=== PATIENT | female | born 1955 | race Caucasian/White ===

== ENCOUNTER → 2018-04-22 | Outpatient (CLI) | payer SELFPAY | END | disposition home or self-care (01) | LOC: CT 13:34 | PROVIDERS: ATTEND Orthopaedic Surgery | DX: M17.11 Unilateral primary osteoarthritis, right knee (principal) | CPT/HCPCS: 73700 ==

== ENCOUNTER 2018-06-03 00:10 | Inpatient (IN) | payer SELFPAY ==
[2018-05-29 10:44] VITALS: BP 141/90
--- NOTE | 2018-05-29 11:05 | PCM.EKG ---
[facility] Test Date: 2018-05-29 Test Time: 11:02:05 Pat Name: REGLA HOLDEN Department: Patient ID: [facility]-[id number] Room: Gender: F Fence Erector: : 1955 Requested By: CLIFFORD CORNEJO Order Number: [id number] Reading MD: Alexis Mcgee Measurements Intervals [place] Rate: 75 P: 68 UT: 138 QRS: 34 QRSD: 92 T: 44 QT: 410 QTc: 457 Interpretive Statements Normal sinus rhythm with sinus arrhythmia Septal infarct, age undetermined T wave abnormality, consider anterior ischemia Abnormal ECG No previous ECG available for comparison Electronically Signed On 05-29-2018 14:25:10 FIELD AUTO APPRAISER by Alexis Mcgee Please click the below link to view image of tracing.
[2018-05-29 11:30] LABS: MEAN CELL HGB 29.8 pg (26-34); MEAN CELL HGB CONCENTRATION 31.9 g/dL (33-37); MEAN CORP VOLUME 93.6 fL (78-100); MEAN PLATELET VOLUME 11.2 fL (7.8-11.0); RED CELL DISTRIBUTION WIDTH 13.6 % (11.5-14.5); WHITE BLOOD CELL 5.1 10^3/uL (4.5-11.0)
[2018-05-29 11:43] LABS: BILIRUBIN,URINE NEGATIVE (NEGATIVE); UROBILINOGEN,URINE NORMAL (NEGATIVE)
[2018-05-29 11:56] LABS: APPEARANCE,URINE CLEAR (CLEAR); UA COLOR YELLOW (YELLOW)
[2018-05-29 12:01] LABS: CALCIUM 9.5 mg/dL (8.4-10.5); CARBON DIOXIDE 27.2 mmol/L (20.0-32)
[~2018-06-03] VITALS: Ht 163.8 cm; Wt 88.0 kg
[2018-06-03] VITALS (8 sets, daily range): BP systolic 94–175; BP diastolic 53–87
[~2018-06-03 00:10] MED LIST: ASCO10002 PO; CALC-76 PO; CARV3.12 PO; CHOL500016 PO; CYCL10TA2 PO; FEXO180T72 PO; HYDR25TA PO; IBUP200C8 PO; LACT1CAP PO; LEVO150T6 PO; MAGN400C PO; MONT10TA6 PO; OMEG1CAP2 PO; OMEP20TA62 PO; SUMA50TA3 PO; TOPI25TA8 PO; VITA200T4 PO; [UNRECOGNIZED DRUG - OTHER] PO
[2018-06-03] MEDS ORDERED: NS 250ML 250 ML IV ONE ×2 (05:32→12:26)
[2018-06-03] MEDS ORDERED: LACTATED RINGERS 1,000 ML ONE (05:33)
[2018-06-03] MEDS ORDERED: VANCOMYCIN HCL 2 GM ONE (05:33)
[2018-06-03] MEDS ORDERED: BACTROBAN OINTMENT TP ONE ×2 (05:33→09:00)
[2018-06-03] MEDS: TYLENOL PO SCH ×3 (06:30→19:50)
[2018-06-03] MEDS ORDERED: SUBLIMAZE IV PRN (06:30)
[2018-06-03] MEDS ORDERED: ZOFRAN IV PRN (06:30)
[2018-06-03] MEDS ORDERED: DILAUDID IV PRN (06:30)
[2018-06-03] MEDS ORDERED: TYLENOL PO SCH (06:30)
[2018-06-03] MEDS ORDERED: NEURONTIN PO SCH (06:30)
[2018-06-03] MEDS ORDERED: DECADRON ONE (06:41)
[2018-06-03] MEDS ORDERED: NEOSTIGMINE ONE (06:41)
[2018-06-03] MEDS ORDERED: TORADOL ONE (06:41)
[2018-06-03] MEDS ORDERED: ZEMURON IV ONE (06:42)
[2018-06-03] MEDS ORDERED: VERSED ONE (06:42)
[2018-06-03] MEDS ORDERED: DIPRIVAN IV ONE (06:42)
[2018-06-03] MEDS ORDERED: NAROPIN 0.2% 40 MG/20 ML VIAL ONE (06:43)
[2018-06-03] MEDS ORDERED: SENSORCAINE-MPF 0.5% VIAL ONE (06:43)
[2018-06-03] MEDS ORDERED: LACTATED RINGERS 2,000 ML ONE (06:43)
[2018-06-03] MEDS ORDERED: PRECEDEX IV ONE (06:43)
[2018-06-03] MEDS ORDERED: VANCOMYCIN 1,500 MG in NS 250ML 300 ML IV ONE (09:00)
[2018-06-03] MEDS ORDERED: CELEBREX PO SCH (09:00)
[2018-06-03] MEDS ORDERED: EXPAREL 266 MG/20 ML VIAL IJ ONE (09:41)
[2018-06-03] MEDS ORDERED: TYLENOL PO ONE (11:27)
[2018-06-03] MEDS ORDERED: NEURONTIN ONE (11:28)
[2018-06-03] MEDS: LACTATED RINGERS 1,000 ML IV SCH (11:50)
[2018-06-03] MEDS ORDERED: TRANEXAMIC ACID IV ONE ×2 (12:21→15:08)
[2018-06-03] MEDS ORDERED: SODIUM CHLORIDE IR ONE (12:26)
[2018-06-03] MEDS ORDERED: NS 3000ML IRR IR ONE (12:26)
[2018-06-03] MEDS ORDERED: NS 100ML 200 ML IV ONE (12:26)
[2018-06-03] MEDS ORDERED: DUONEB 0.5 MG-3 MG/3 ML SOLN IH PRN ×2 (15:30)
[2018-06-03] MEDS ORDERED: EPHEDRINE SULFATE ONE (17:43)
[2018-06-03] MEDS ORDERED: DEMEROL IV PRN (18:00)
[2018-06-03] MEDS ORDERED: NS IV SCH (18:00)
[2018-06-03] MEDS ORDERED: LOVAZA PO SCH (18:00)
[2018-06-03] MEDS ORDERED: VALIUM PO PRN (18:00)
[2018-06-03] MEDS ORDERED: CEPACOL SORE THROAT LOZENGE MM PRN (18:00)
[2018-06-03] MEDS ORDERED: VANCOMYCIN HCL IV SCH (18:00)
[2018-06-03] MEDS ORDERED: LACTATED RINGERS 1,000 ML IV SCH (18:00)
[2018-06-03] MEDS ORDERED: IMITREX PO PRN (18:00)
[2018-06-03] MEDS ORDERED: ATARAX PO PRN (18:00)
--- NOTE | 2018-06-03 18:08 | OPH ---
DATE OF SURGERY: 06/03/2018 PREOPERATIVE DIAGNOSIS: Osteoarthritis of the right knee. POSTOPERATIVE DIAGNOSIS: Osteoarthritis of the right knee. OPERATIVE PROCEDURE: Right total knee arthroplasty using Medacta Sphere knee, size 3+ femur, size 3 tibia, 10 mm insert. All components were cemented. SURGEON: Umang Chirinos MD ANESTHESIA: General endotracheal. BLOOD LOSS: 300. TOURNIQUET TIME: 60 minutes at 300 mmHg. DRAINS: None. BLOOD LOSS: 300 mL. DESCRIPTION OF INDICATIONS: The patient is a 62-year-old female with severe pain about the right knee for 1 year. She has severe limping as well as night pain and household ambulation. She has failed conservative treatment and is limited on her amount of anti-inflammatories that she can to take because of GERD. X-rays show severe medial compartment narrowing with patellofemoral narrowing. The patient was taken to the operating room for right total knee replacement for pain relief. DESCRIPTION OF PROCEDURE: The patient was placed on the operating table in the supine position. A general endotracheal anesthetic was induced without difficulty. Right thigh was padded and a tourniquet was applied. The right lower extremity was sterilely prepped and draped. The leg was exsanguinated with an Esmarch and tourniquet was inflated to 300 mmHg. The knee was flexed to 90 degrees. An anterior incision was made. The incision was taken through the skin and the subcutaneous tissues. A medial parapatellar arthrotomy was performed. The patella was deviated laterally. Medial and lateral meniscectomies were performed. The anterior and posterior cruciate ligaments were released. The capsule and the MCL were released around the posterior medial corner of the tibia. The patient then had the ZipmarkKnee femoral cutting guide placed about the distal femur and held into position with multiple pins. Distal femoral cut was then made with the power saw. The #2 size 3+ femoral cutting block was placed about the distal femur and held into position with multiple screws and pins. The anterior and posterior femoral cuts as well as the chamfer cuts were made. The tibia was subluxed anteriorly. The ZipmarkKnee tibial cutting guide was placed about the proximal tibia and held into position with multiple pins. Tibial cut was then made with the saw. The tibia measured a size 3. The size 3 tibial trial was held into position with multiple pins. The central drill hole was made and the cruciate punch was used to stabilize the tibial component. Trial reduction was done with a 3 tibia, 3+ femur, 10 mm insert. The knee went out into full extension. She had 120 degrees of flexion, excellent medial and lateral stability, excellent tracking of the patella. The patella was everted. The peripheral osteophytes were trimmed. The peripheral edges were cauterized. The final medial and lateral femoral drill holes were made. The femoral sulcus cut was made. The patient then had the trial components and the bone ends were copiously irrigated. The bone ends were then dried and a size 3 tibial component was cemented into position. The polyethylene component was impacted into position and secured with an anterior screw. The size 3+ femur was likewise cemented. Once all the excess cement was removed and the cement had hardened, tourniquet was released. The bleeding was controlled with the Aquamantys device. The Exparel was injected. The capsule was closed with a #2 PDS in interrupted [id number] manner. The subcutaneous was closed with 2-0 Monocryl barbed in a running manner and the skin was closed with kim. A Prevena type suction dressing was applied, reinforced with 4 x 4's, cast padding and Germain wrap. The patient was extubated in the operating room, sent to recovery in stable condition. Umang Chirinos MD DR: CARI/timothy JOB# [id number]
--- NOTE | 2018-06-03 18:27 | DIREP ---
PROCEDURE:XRAY KNEE 2 VWS-RT COMPARISON:None. INDICATIONS:POST TOTAL RIGHT KNEE FINDINGS: Postoperative changes of right total knee prosthesis. Expected postoperative changes of soft tissue gas, swelling and midline surgical kim noted. No evidence of hardware complication/fracture. CONCLUSION:Postoperative changes of right total knee prosthesis. Dictated by: Shukri Grimes M.D. on 06/03/2018 at 06:26 PM
--- NOTE | 2018-06-03 18:57 | PRM.PN ---
Subjective Subjective Date: Jun 03, 2018 Time: 18:56 Subjective Awake and alert VSS NVM+ Stable No pain Patient History: Autoimmune disorder V19 CHILD Chronic obstructive pulmonary disease 32 MOTHER, , Age:79 33 FATHER, , Age:76 G8 SISTER G8 SISTER Diabetes mellitus V19 CHILD FH: Crohn's disease G8 SISTER No known health problems G8 SISTER G8 SISTER G8 SISTER V19 CHILD V19 CHILD No Family History of: Alzheimer's disease Asthma Cerebrovascular disorder Congestive heart failure Diabetes insipidus Hypertension Parkinson's disease VTE VTE Risk Total Score: 4 VTE Risk Score VTE Risk: Score 0-1 = Low Risk (Aggressive mobilization; early ambulation; no VTE prophylaxis required) Score 2: Moderate Risk (Intermittent/Pneumatic Compression Device OR Lovenox/Heparin/Coumadin) Score 3-4: High Risk (Intermittent/Pneumatic Compression Device AND Lovenox/Heparin/Coumadin) Score > or =5: Highest Risk (Intermittent/Pneumatic Compression Device AND Lovenox/Heparin/Coumadin) Review of Systems Allergies: Coded Allergies: adhesive (Verified Allergy, Severe, DISOLVES MY SKIN, TURNS IT RAW, ) shellfish derived (Verified Allergy, Severe, SWELLING, RASH, 05/29/18) avocado (Verified Allergy, Unknown, MOUTH ITCHES, 05/29/18) codeine (Verified Allergy, Unknown, RASH, ITCHING, 05/29/18) latex (Verified Allergy, Unknown, DISOLVES MY SKIN, RAW, 05/29/18) morphine (Verified Allergy, Unknown, RASH, ITCHING, 05/29/18) Scheduled Ascorbic Acid (Vitamin C), 1,000 MG PO DAILY24, (Reported) Calcium Carb & Cit/Vitamin D3 (Calcium + D3 Er Tablet), 1 EACH PO DAILY24, ( Reported) Carvedilol 3.125MG (Coreg 3.125MG), 1 TAB PO BID, (Reported) Cholecalciferol (Vitamin D3) (Vitamin D3), 1 TAB PO DAILY, (Reported) Cyclobenzaprine Hcl (Flexeril), 1 TAB PO HS, (Reported) Fexofenadine Hcl (Keri Allergy), 1 TAB PO DAILY, (Reported) Lactobacillus Combo No.11 (Probiotic), 2 EACH PO HS, (Reported) Levothyroxine Sodium (Levothyroxine Sodium), 1 TAB PO DAILY, (Reported) Magnesium Oxide (Magnesium), 1 CAP PO DAILY, (Reported) Montelukast Sodium (Singulair), 1 TAB PO DAILY, (Reported) Sanger-3 Acid Ethyl Esters (Lovaza), 1 CAP PO DAILY24, (Reported) Omeprazole Magnesium (Prilosec Otc), 1 TAB PO DAILY, (Reported) Topiramate (Topiramate), 1 TAB PO DAILY, (Reported) Vitamin E Acid Succinate (Vitamin E), 200 UNIT PO DAILY24, (Reported) [Guna-Flu], 1 VIAL PO DAILY24, (Reported) Scheduled PRN Hydroxyzine Hcl (Hydroxyzine Hcl), 1 TAB PO DAILY24 PRN for ITCHING, (Reported) Ibuprofen (Advil), 400 MG PO DAILY24 PRN for PAIN, (Reported) Sumatriptan Succinate (Imitrex), 50 MG PO DAILY24 PRN for MIGRAINES, (Reported) Objective Vitals and I/O Vital Sign - Last 24 Hours 06/03/18 06/03/18 06/03/18 06/03/18 11:25 11:25 13:57 14:01 Temp 98.2 98.2 Pulse 96 77 86 Resp 19 18 18 B/P (MAP) 175/86 (115) 165/87 (113) 149/75 (99) Pulse Ox 98 95 95 O2 Delivery Room Air Room Air Nasal Canula Nasal Canula O2 Flow Rate 3 2 06/03/18 06/03/18 06/03/18 06/03/18 17:30 17:30 17:45 18:00 Temp 98.9 97.9 97.0 98.9 97.9 97.0 Pulse 57 60 59 Resp 18 18 18 B/P (MAP) 109/53 (71) 101/55 (70) 101/57 (72) Pulse Ox 99 99 96 O2 Delivery Non-Rebreather Non-Rebreather Nasal Canula O2 Flow Rate 15 15 10 3.5 06/03/18 18:15 Temp 97.3 97.3 Pulse 57 Resp 18 B/P (MAP) 94/53 (67) Pulse Ox 97 O2 Delivery Nasal Canula O2 Flow Rate 3.5 Course Vitals & review Data Vital Sign - Last 24 Hours 06/03/18 06/03/18 06/03/18 06/03/18 11:25 11:25 13:57 14:01 Temp 98.2 98.2 Pulse 96 77 86 Resp 19 18 18 B/P (MAP) 175/86 (115) 165/87 (113) 149/75 (99) Pulse Ox 98 95 95 O2 Delivery Room Air Room Air Nasal Canula Nasal Canula O2 Flow Rate 3 2 06/03/18 06/03/18 06/03/18 06/03/18 17:30 17:30 17:45 18:00 Temp 98.9 97.9 97.0 98.9 97.9 97.0 Pulse 57 60 59 Resp 18 18 18 B/P (MAP) 109/53 (71) 101/55 (70) 101/57 (72) Pulse Ox 99 99 96 O2 Delivery Non-Rebreather Non-Rebreather Nasal Canula O2 Flow Rate 15 15 10 3.5 06/03/18 18:15 Temp 97.3 97.3 Pulse 57 Resp 18 B/P (MAP) 94/53 (67) Pulse Ox 97 O2 Delivery Nasal Canula O2 Flow Rate 3.5 Current Medications Medications (Trade) Dose Ordered Sig/Ping PRN Reason Start Time Stop Time Status Last Admin Acetaminophen (Tylenol) 1,000 mg Q6H 06/03/18 06:30 07/03/18 06:29 Albuterol/ Ipratropium (Duoneb 0.5 Mg-3 Mg/3 ml Soln) 3 ml PRN PRN WHEEZING 06/03/18 15:30 18 15:29 Carvedilol (Coreg) 3.125 mg BID 06/03/18 21:00 07/03/18 20:59 UNV Cholecalciferol (Vitamin D) 5,000 unit DAILY 06/04/18 09:00 07/04/18 08:59 UNV Cyclobenzaprine HCl (Flexeril) 10 mg HS 06/03/18 21:00 07/03/18 20:59 UNV Diazepam (Valium) 5 mg Q6HR PRN MUSCLE SPASM 06/03/18 18:00 07/03/18 17:59 UNV Docusate Sodium (Colace) 100 mg DAILY 06/04/18 09:00 07/04/18 08:59 UNV Famotidine (Pepcid) 20 mg DAILY 06/04/18 09:00 07/04/18 08:59 UNV Fentanyl Citrate (Sublimaze) 25 mcg Q5MIN PRN PAIN 06/03/18 06:30 06/04/18 06:29 Gabapentin (Neurontin) 400 mg Q24HRS 06/04/18 06:30 06/04/18 06:31 Hydromorphone HCl (Dilaudid) 0.2 mg Q5MIN PRN PAIN MILD 06/03/18 06:30 06/04/18 06:29 Hydroxyzine HCl (Atarax) 25 mg DAILY24 PRN ITCHING 06/03/18 18:00 07/03/18 17:59 UNV Meperidine HCl (Demerol) 50 mg Q4HR PRN PAIN 8-10 06/03/18 18:00 07/03/18 17:59 UNV Montelukast Sodium (Singulair) 10 mg DAILY 06/04/18 09:00 07/04/18 08:59 UNV Hznbn-8-Ksnq Ethyl Esters (Lovaza) 1 gm DAILY24 06/03/18 18:00 07/03/18 17:59 UNV Ondansetron HCl (Zofran) 4 mg PRN PRN nausea 06/03/18 06:30 06/08/18 06:29 Rivaroxaban (Xarelto) 10 mg DAILY 06/04/18 09:00 07/04/18 08:59 UNV Sumatriptan Succinate (Imitrex) 50 mg DAILY24 PRN MIGRAINES 06/03/18 18:00 07/03/18 17:59 UNV Throat Lozenges (Cepacol Sore Throat Lozenge) 1 each PRN PRN SORE THROAT 06/03/18 18:00 07/03/18 17:59 UNV Topiramate (Topamax) 25 mg DAILY 06/04/18 09:00 07/04/18 08:59 UNV Tramadol HCl (Ultram) 50 mg Q4HR 06/03/18 20:00 07/03/18 19:59 UNV Tramadol HCl (Ultram) 100 mg Q4HR PRN SEVERE PAIN 06/03/18 18:00 07/03/18 17:59 UNV Vancomycin HCl 1.5 gm/Sodium Chloride 250 ml Q12H 06/03/18 18:00 06/04/18 18:01 CLIFFORD MACKENZIE MD Jun 03, 2018 18:57
[2018-06-03] MEDS: ULTRAM PO SCH ×2 (19:50→20:00)
[2018-06-03 19:57] LABS: HEMOGLOBIN 11.6 g/dL (12.0-15.0); MEAN CELL HGB 29.7 pg (26-34); MEAN CELL HGB CONCENTRATION 31.6 g/dL (33-37); MEAN CORP VOLUME 94.1 fL (78-100); MEAN PLATELET VOLUME 11.4 fL (7.8-11.0); RED CELL DISTRIBUTION WIDTH 13.5 % (11.5-14.5); WHITE BLOOD CELL 5.7 10^3/uL (4.5-11.0)
[2018-06-03] MEDS: ULTRAM PO PRN (20:01)
--- NOTE | 2018-06-03 20:50 | HPH ---
ADMIT DATE: 06/03/2018 CHIEF COMPLAINT: Painful right knee. HISTORY OF PRESENT ILLNESS: The patient is a 62-year-old female with a 1-year history of pain about the right knee. She complained of night pain as well as limping. She has pain with just household ambulation. The patient has had several cortisone injections through the years. She got to the point where they do not help her anymore. The patient has GERD and is limited to the number of anti-inflammatories that she can take. She takes Tylenol as well as Flexeril for the pain at this point. She is no better with a knee brace or home physical therapy. MEDICATIONS: The medications include ____, levothyroxine, Flexeril, topiramate, montelukast and Prilosec. PAST MEDICAL HISTORY: Include hypothyroidism, GERD and migraine headaches. PREVIOUS SURGICAL PROCEDURE: Right knee arthroscopy, , cholecystectomy, hysterectomy and neck surgery. ALLERGIES: The patient is allergic to CODEINE, MORPHINE, LATEX and ADHESIVES as well as SHELLFISH. SOCIAL HISTORY: Socially, she is . She does not smoke or drink. Lives with her family. FAMILY HISTORY: Positive for lung cancer and diabetes. REVIEW OF SYSTEMS: Negative for chest pain, shortness of breath, nausea, vomiting, melena, hematochezia, dysuria, hematuria, fever, chills and weight loss. PHYSICAL EXAMINATION: GENERAL: Shows that she is 5 feet 4 inches and weighs 190 pounds, healthy, 62-year-old female, in no acute distress. HEENT: Within normal limits. CHEST: Clear to auscultation. HEART: Regular rate and rhythm, no murmurs. ABDOMEN: Soft, nontender, good bowel sounds. EXTREMITIES: Right knee has full extension with 120 degrees of flexion, 2+ effusion, mild crepitation, good medial and lateral stability. NEUROLOGICAL: The patient is awake and alert. She is oriented x 3. Her cranial nerves 2-12 grossly intact. She has 5/5 strength in all muscle groups of both upper and lower extremities. IMAGING STUDIES: The x-rays show severe narrowing medially about the knee as well as patellofemoral narrowing with osteophytes. ASSESSMENT: Osteoarthritis, right knee. Other diagnoses include hypothyroidism as well as gastroesophageal reflux disease. PLAN: The patient will be admitted for right total knee replacement. She is significantly limited in her daily activities and has failed conservative treatment. The patient understands the risk and hazards of surgery. Umang Chirinos MD DR: CARI/timothy JOB# [id number]
[2018-06-03] MEDS: COREG PO SCH (21:26)
[2018-06-03] MEDS: FLEXERIL PO SCH (21:27)
[2018-06-04] MEDS: ULTRAM PO PRN ×2 (00:06→04:17)
[2018-06-04 00:41] VITALS: BP 115/65
[2018-06-04] MEDS ORDERED: VANCOMYCIN HCL IV SCH (01:00)
[2018-06-04] MEDS ORDERED: NS IV SCH (01:00)
[2018-06-04] MEDS ORDERED: VANCOMYCIN HCL 2 GM ONE (01:10)
[2018-06-04] MEDS ORDERED: NS 250ML 250 ML IV ONE (01:11)
[2018-06-04] MEDS: ULTRAM PO SCH ×6 (04:00→21:14)
[2018-06-04] MEDS: TYLENOL PO SCH ×4 (04:16→18:12)
[2018-06-04 05:05] VITALS: BP 141/64
[2018-06-04 05:18] LABS: MEAN CELL HGB 29.3 pg (26-34); MEAN CELL HGB CONCENTRATION 31.2 g/dL (33-37); MEAN CORP VOLUME 93.9 fL (78-100); MEAN PLATELET VOLUME 11.4 fL (7.8-11.0); RED CELL DISTRIBUTION WIDTH 13.6 % (11.5-14.5); WHITE BLOOD CELL 10.6 10^3/uL (4.5-11.0)
[2018-06-04] MEDS ORDERED: NEURONTIN PO SCH (06:30)
[2018-06-04 07:32] VITALS: BP 143/70
[2018-06-04] MEDS: SINGULAIR PO SCH (08:55)
[2018-06-04] MEDS: XARELTO PO SCH (08:56)
[2018-06-04] MEDS: COLACE PO SCH (08:56)
[2018-06-04] MEDS: TOPAMAX PO SCH (08:56)
[2018-06-04] MEDS: COREG PO SCH ×2 (08:56→21:15)
[2018-06-04] MEDS: VITAMIN D PO SCH (08:56)
[2018-06-04] MEDS: PEPCID PO SCH (08:56)
[2018-06-04] MEDS: LACTATED RINGERS 1,000 ML IV SCH (09:00)
--- NOTE | 2018-06-04 10:06 | PRM.PN ---
Subjective Subjective Date: Jun 04, 2018 Time: 10:04 Subjective Restless night Some knee pain VSS HGB 12 Unable to walk because of weak quads Cont with PT Patient History: Autoimmune disorder V19 CHILD Chronic obstructive pulmonary disease 32 MOTHER, , Age:79 33 FATHER, , Age:76 G8 SISTER G8 SISTER Diabetes mellitus V19 CHILD FH: Crohn's disease G8 SISTER No known health problems G8 SISTER G8 SISTER G8 SISTER V19 CHILD V19 CHILD No Family History of: Alzheimer's disease Asthma Cerebrovascular disorder Congestive heart failure Diabetes insipidus Hypertension Parkinson's disease VTE VTE Risk Total Score: 4 VTE Risk Score VTE Risk: Score 0-1 = Low Risk (Aggressive mobilization; early ambulation; no VTE prophylaxis required) Score 2: Moderate Risk (Intermittent/Pneumatic Compression Device OR Lovenox/Heparin/Coumadin) Score 3-4: High Risk (Intermittent/Pneumatic Compression Device AND Lovenox/Heparin/Coumadin) Score > or =5: Highest Risk (Intermittent/Pneumatic Compression Device AND Lovenox/Heparin/Coumadin) Review of Systems Allergies: Coded Allergies: adhesive (Verified Allergy, Severe, DISOLVES MY SKIN, TURNS IT RAW, ) shellfish derived (Verified Allergy, Severe, SWELLING, RASH, 05/29/18) avocado (Verified Allergy, Unknown, MOUTH ITCHES, 05/29/18) codeine (Verified Allergy, Unknown, RASH, ITCHING, 05/29/18) latex (Verified Allergy, Unknown, DISOLVES MY SKIN, RAW, 05/29/18) morphine (Verified Allergy, Unknown, RASH, ITCHING, 05/29/18) Scheduled Ascorbic Acid (Vitamin C), 1,000 MG PO DAILY24, (Reported) Calcium Carb & Cit/Vitamin D3 (Calcium + D3 Er Tablet), 1 EACH PO DAILY24, ( Reported) Carvedilol 3.125MG (Coreg 3.125MG), 1 TAB PO BID, (Reported) Cholecalciferol (Vitamin D3) (Vitamin D3), 1 TAB PO DAILY, (Reported) Cyclobenzaprine Hcl (Flexeril), 1 TAB PO HS, (Reported) Fexofenadine Hcl (Keri Allergy), 1 TAB PO DAILY, (Reported) Lactobacillus Combo No.11 (Probiotic), 2 EACH PO HS, (Reported) Levothyroxine Sodium (Levothyroxine Sodium), 1 TAB PO DAILY, (Reported) Magnesium Oxide (Magnesium), 1 CAP PO DAILY, (Reported) Montelukast Sodium (Singulair), 1 TAB PO DAILY, (Reported) Arp-3 Acid Ethyl Esters (Lovaza), 1 CAP PO DAILY24, (Reported) Omeprazole Magnesium (Prilosec Otc), 1 TAB PO DAILY, (Reported) Topiramate (Topiramate), 1 TAB PO DAILY, (Reported) Vitamin E Acid Succinate (Vitamin E), 200 UNIT PO DAILY24, (Reported) [Guna-Flu], 1 VIAL PO DAILY24, (Reported) Scheduled PRN Hydroxyzine Hcl (Hydroxyzine Hcl), 1 TAB PO DAILY24 PRN for ITCHING, (Reported) Ibuprofen (Advil), 400 MG PO DAILY24 PRN for PAIN, (Reported) Sumatriptan Succinate (Imitrex), 50 MG PO DAILY24 PRN for MIGRAINES, (Reported) Objective Vitals and I/O Vital Sign - Last 24 Hours 06/03/18 06/03/18 06/03/18 06/03/18 11:25 11:25 13:57 14:01 Temp 98.2 98.2 Pulse 96 77 86 Resp 19 18 18 B/P (MAP) 175/86 (115) 165/87 (113) 149/75 (99) Pulse Ox 98 95 95 O2 Delivery Room Air Room Air Nasal Canula Nasal Canula O2 Flow Rate 3 2 06/03/18 06/03/18 06/03/18 06/03/18 17:30 17:30 17:45 18:00 Temp 98.9 97.9 97.0 98.9 97.9 97.0 Pulse 57 60 59 Resp 18 18 B/P (MAP) 109/53 (71) 101/55 (70) 101/57 (72) Pulse Ox 99 99 96 O2 Delivery Non-Rebreather Non-Rebreather Nasal Canula O2 Flow Rate 15 15 10 3.5 06/03/18 06/03/18 06/03/18 06/03/18 18:15 19:30 19:48 19:49 Temp 97.3 97.3 97.3 97.3 Pulse 57 66 57 Resp 18 18 18 B/P (MAP) 94/53 (67) 126/64 (84) Pulse Ox 97 99 97 97 O2 Delivery Nasal Canula Nasal Canula Nasal Cannula O2 Flow Rate 3.5 2.00 2.00 FiO2 28 06/03/18 06/03/18 06/04/18 06/04/18 21:26 21:40 00:41 05:05 Temp 97.5 97.7 97.5 97.7 Pulse 57 89 80 Resp 16 16 B/P (MAP) 126/64 115/65 (82) 141/64 (89) Pulse Ox 97 95 O2 Delivery Nasal Cannula Nasal Canula Nasal Canula O2 Flow Rate 2.00 2.00 2.00 06/04/18 06/04/18 06/04/18 06/04/18 07:29 07:32 08:56 09:06 Temp 97.7 97.7 Pulse 89 89 108 Resp 18 16 B/P (MAP) 143/70 (94) 143/70 Pulse Ox 98 97 O2 Delivery Nasal Cannula Nasal Canula Nasal Cannula O2 Flow Rate 2.00 2.00 2.00 FiO2 28 Intake and Output 06/03/18 06/03/18 06/04/18 15:00 23:00 07:00 Intake Total 200 ml 3950 ml 1188 ml Output Total 350 ml 2450 ml Balance 200 ml 3600 ml -1262 ml Course Sepsis Screening Results: Posi: NEGATIVE Sepsis Qualifier/Stage: NO DEFINITE RISK Vitals & review Data Vital Sign - Last 24 Hours 06/03/18 06/03/18 06/03/18 06/03/18 11:25 11:25 13:57 14:01 Temp 98.2 98.2 Pulse 96 77 86 Resp 19 18 18 B/P (MAP) 175/86 (115) 165/87 (113) 149/75 (99) Pulse Ox 98 95 95 O2 Delivery Room Air Room Air Nasal Canula Nasal Canula O2 Flow Rate 3 2 06/03/18 06/03/18 06/03/18 06/03/18 17:30 17:30 17:45 18:00 Temp 98.9 97.9 97.0 98.9 97.9 97.0 Pulse 57 60 59 Resp 18 18 18 B/P (MAP) 109/53 (71) 101/55 (70) 101/57 (72) Pulse Ox 99 99 96 O2 Delivery Non-Rebreather Non-Rebreather Nasal Canula O2 Flow Rate 15 15 10 3.5 06/03/18 18:15 Temp 97.3 97.3 Pulse 57 Resp 18 B/P (MAP) 94/53 (67) Pulse Ox 97 O2 Delivery Nasal Canula O2 Flow Rate 3.5 Current Medications Medications (Trade) Dose Ordered Sig/Ping PRN Reason Start Time Stop Time Status Last Admin Acetaminophen (Tylenol) 1,000 mg Q6H 06/03/18 06:30 07/03/18 06:29 Albuterol/ Ipratropium (Duoneb 0.5 Mg-3 Mg/3 ml Soln) 3 ml PRN PRN WHEEZING 06/03/18 15:30 07/03/18 15:29 Carvedilol (Coreg) 3.125 mg BID 06/03/18 21:00 07/03/18 20:59 UNV Cholecalciferol (Vitamin D) 5,000 unit DAILY 06/04/18 09:00 07/04/18 08:59 UNV Cyclobenzaprine HCl (Flexeril) 10 mg HS 06/03/18 21:00 07/03/18 20:59 UNV Diazepam (Valium) 5 mg Q6HR PRN MUSCLE SPASM 06/03/18 18:00 07/03/18 17:59 UNV Docusate Sodium (Colace) 100 mg DAILY 06/04/18 09:00 07/04/18 08:59 UNV Famotidine (Pepcid) 20 mg DAILY 06/04/18 09:00 07/04/18 08:59 UNV Fentanyl Citrate (Sublimaze) 25 mcg Q5MIN PRN PAIN 06/03/18 06:30 06/04/18 06:29 Gabapentin (Neurontin) 400 mg Q24HRS 06/04/18 06:30 06/04/18 06:31 Hydromorphone HCl (Dilaudid) 0.2 mg Q5MIN PRN PAIN MILD 06/03/18 06:30 06/04/18 06:29 Hydroxyzine HCl (Atarax) 25 mg DAILY24 PRN ITCHING 06/03/18 18:00 07/03/18 17:59 UNV Meperidine HCl (Demerol) 50 mg Q4HR PRN PAIN 8-10 06/03/18 18:00 07/03/18 17:59 UNV Montelukast Sodium (Singulair) 10 mg DAILY 06/04/18 09:00 07/04/18 08:59 UNV Zyovt-4-Bktu Ethyl Esters (Lovaza) 1 gm DAILY24 06/03/18 18:00 07/03/18 17:59 UNV Ondansetron HCl (Zofran) 4 mg PRN PRN nausea 06/03/18 06:30 06/08/18 06:29 Rivaroxaban (Xarelto) 10 mg DAILY 06/04/18 09:00 07/04/18 08:59 UNV Sumatriptan Succinate (Imitrex) 50 mg DAILY24 PRN MIGRAINES 06/03/18 18:00 07/03/18 17:59 UNV Throat Lozenges (Cepacol Sore Throat Lozenge) 1 each PRN PRN SORE THROAT 06/03/18 18:00 07/03/18 17:59 UNV Topiramate (Topamax) 25 mg DAILY 06/04/18 09:00 07/04/18 08:59 UNV Tramadol HCl (Ultram) 50 mg Q4HR 06/03/18 20:00 07/03/18 19:59 UNV Tramadol HCl (Ultram) 100 mg Q4HR PRN SEVERE PAIN 06/03/18 18:00 07/03/18 17:59 UNV Vancomycin HCl 1.5 gm/Sodium Chloride 250 ml Q12H 06/03/18 18:00 06/04/18 18:01 UNV CLIFFORD CORNEJO MD Jun 04, 2018 10:06
[2018-06-04] MEDS ORDERED: AMBIEN PO PRN (10:30)
--- NOTE | 2018-06-04 10:45 | NUR ---
DISCHARGE PLAN CM VISITED WITH PATIENT AND PATIENT'S REGARDING DISCHARGE PLAN AND NEEDS. PATIENT LIVES AT HOME WITH HER IN [place]. SHE IS VERY ACTIVE AND INDEPENDENT AND DID NOT USE ANY TYPE OF DME PRIOR TO HER KNEE REPLACEMENT. SHE HAS ALL DME IN PLACE INCLUDING A WALKER, SHOWER CHAIR, AND BEDSIDE COMMODE. CM DISCUSSED PT OPTIONS WITH PATIENT. PATIENT AND STATE THEY WILL DO SOME SORT OF OUTPATIENT PHYSICAL THERAPY IN [place], PROBABLY AT [facility] OR [place] [facility]. PATIENT'S STATES HE WILL CALL AND SET IT UP DUE TO THEIR INSURANCE BECAUSE HE WILL HAVE TO NEGOTIATE COSTS. CONTACT INFORMATION GIVEN. PATIENT DENIES ANY NEEDS AT THIS TIME. DISCHARGE GOAL IS TO DISCHARGE HOME WITH HER AND CONTINUE WITH ROUTINE SELF CARE. CM DEPT WILL CONTINUE TO MONITOR DISCHARGE NEEDS.
--- NOTE | 2018-06-04 12:23 | NUR ---
Anesthesia Post op Visit Ms. Moore had a Right Total Knee Arthroplasty yesterday and had femoral, adductor canal and IPAK blocks prior to the procedure. She stated that her pain level today is at most a 4 out of 10. She can dorsiflex her left ankle and foot and states she does not think she has any numbness at this time. Injection sites appear dry and no signs of inflammation are noted. Patient was pleased with her post operative course so far and has no apparent post anesthetic or post block complications
[2018-06-04 12:34] VITALS: BP 139/68
[2018-06-04] MEDS: VANCOMYCIN HCL 1.5 GM in NS 250ML 300 ML IV SCH (13:22)
--- NOTE | 2018-06-04 13:50 | NUR ---
Activity Patient transferred from chair to bed x1 assist.
[2018-06-04 16:59] VITALS: BP 143/72
--- NOTE | 2018-06-04 17:16 | NUR ---
Puffiness and redness noted to patients face. Dr. Chirinos notified. New orders received for Benadryl q6h prn
[2018-06-04] MEDS ORDERED: BENADRYL PO ONE (17:22)
[2018-06-04] MEDS ORDERED: BENADRYL PO PRN (17:30)
--- NOTE | 2018-06-04 18:45 | NUR ---
REPORT REPORT RECEIVED FROM DAY SHIFT. ASSUMED CARE OF PATIENT.
--- NOTE | 2018-06-04 20:00 | NUR ---
CPM PATIENT PLACED ON CPM.
[2018-06-04] MEDS: FLEXERIL PO SCH (21:15)
[2018-06-04] MEDS: LOVAZA PO SCH (21:16)
--- NOTE | 2018-06-04 21:35 | NUR ---
CPM PATIENT TAKEN OFF CPM.
[2018-06-04 22:15] VITALS: BP 158/77
--- NOTE | 2018-06-04 23:10 | NUR ---
ICEMAN ICEMAN EMPTIED AND REFILLED WITH NEW ICE AND COLD WATER. BED IS LOCKED IN LOW POSITION WITH SIDE RAILS UP X2. TABLE AND CALL LIGHT ARE WITHIN REACH.
[2018-06-05] MEDS: ULTRAM PO SCH ×6 (00:20→21:32)
[2018-06-05] MEDS: VANCOMYCIN HCL 1.5 GM in NS 250ML 300 ML IV SCH (00:54)
[2018-06-05] MEDS: TYLENOL PO SCH ×4 (00:56→21:32)
[2018-06-05 03:40] VITALS: BP 136/82
[2018-06-05 05:22] LABS: HEMOGLOBIN 10.6 g/dL (12.0-15.0); MEAN CELL HGB 29.5 pg (26-34); MEAN CELL HGB CONCENTRATION 31.1 g/dL (33-37); MEAN PLATELET VOLUME 11.9 fL (7.8-11.0); WHITE BLOOD CELL 8.3 10^3/uL (4.5-11.0)
[2018-06-05 08:23] VITALS: BP 170/77
[2018-06-05] MEDS: COREG PO SCH ×2 (08:50→21:30)
[2018-06-05] MEDS: VITAMIN D PO SCH (08:50)
[2018-06-05] MEDS: COLACE PO SCH (08:52)
[2018-06-05] MEDS: XARELTO PO SCH (08:52)
[2018-06-05] MEDS: SINGULAIR PO SCH (08:52)
[2018-06-05] MEDS: PEPCID PO SCH (08:52)
[2018-06-05] MEDS: TOPAMAX PO SCH (08:52)
[2018-06-05] MEDS: LACTATED RINGERS 1,000 ML IV SCH (09:00)
[2018-06-05 11:32] VITALS: BP 134/77
--- NOTE | 2018-06-05 15:08 | PRM.PN ---
Subjective Subjective Date: Jun 05, 2018 Time: 15:06 Subjective Pain worse today More ambulatory VSS HGB 10.5 postop anemia expected Will try IV tylenol for 24 hours Cont with PT and OT Patient History: Autoimmune disorder V19 CHILD Chronic obstructive pulmonary disease 32 MOTHER, , Age:79 33 FATHER, , Age:76 G8 SISTER G8 SISTER Diabetes mellitus V19 CHILD FH: Crohn's disease G8 SISTER No known health problems G8 SISTER G8 SISTER G8 SISTER V19 CHILD V19 CHILD No Family History of: Alzheimer's disease Asthma Cerebrovascular disorder Congestive heart failure Diabetes insipidus Hypertension Parkinson's disease VTE VTE Risk Total Score: 4 VTE Risk Score VTE Risk: Score 0-1 = Low Risk (Aggressive mobilization; early ambulation; no VTE prophylaxis required) Score 2: Moderate Risk (Intermittent/Pneumatic Compression Device OR Lovenox/Heparin/Coumadin) Score 3-4: High Risk (Intermittent/Pneumatic Compression Device AND Lovenox/Heparin/Coumadin) Score > or =5: Highest Risk (Intermittent/Pneumatic Compression Device AND Lovenox/Heparin/Coumadin) Review of Systems Allergies: Coded Allergies: adhesive (Verified Allergy, Severe, DISOLVES MY SKIN, TURNS IT RAW, ) shellfish derived (Verified Allergy, Severe, SWELLING, RASH, 05/29/18) avocado (Verified Allergy, Unknown, MOUTH ITCHES, 05/29/18) codeine (Verified Allergy, Unknown, RASH, ITCHING, 05/29/18) latex (Verified Allergy, Unknown, DISOLVES MY SKIN, RAW, 05/29/18) morphine (Verified Allergy, Unknown, RASH, ITCHING, 05/29/18) Scheduled Ascorbic Acid (Vitamin C), 1,000 MG PO DAILY24, (Reported) Calcium Carb & Cit/Vitamin D3 (Calcium + D3 Er Tablet), 1 EACH PO DAILY24, ( Reported) Carvedilol 3.125MG (Coreg 3.125MG), 1 TAB PO BID, (Reported) Cholecalciferol (Vitamin D3) (Vitamin D3), 1 TAB PO DAILY, (Reported) Cyclobenzaprine Hcl (Flexeril), 1 TAB PO HS, (Reported) Fexofenadine Hcl (Keri Allergy), 1 TAB PO DAILY, (Reported) Lactobacillus Combo No.11 (Probiotic), 2 EACH PO HS, (Reported) Levothyroxine Sodium (Levothyroxine Sodium), 1 TAB PO DAILY, (Reported) Magnesium Oxide (Magnesium), 1 CAP PO DAILY, (Reported) Montelukast Sodium (Singulair), 1 TAB PO DAILY, (Reported) [place]-3 Acid Ethyl Esters (Lovaza), 1 CAP PO DAILY24, (Reported) Omeprazole Magnesium (Prilosec Otc), 1 TAB PO DAILY, (Reported) Topiramate (Topiramate), 1 TAB PO DAILY, (Reported) Vitamin E Acid Succinate (Vitamin E), 200 UNIT PO DAILY24, (Reported) [Guna-Flu], 1 VIAL PO DAILY24, (Reported) Scheduled PRN Hydroxyzine Hcl (Hydroxyzine Hcl), 1 TAB PO DAILY24 PRN for ITCHING, (Reported) Ibuprofen (Advil), 400 MG PO DAILY24 PRN for PAIN, (Reported) Sumatriptan Succinate (Imitrex), 50 MG PO DAILY24 PRN for MIGRAINES, (Reported) Objective Vitals and I/O Vital Sign - Last 24 Hours 06/04/18 06/04/18 06/04/18 06/04/18 16:59 19:26 20:00 21:15 Temp 98.3 98.3 Pulse 76 83 83 Resp 18 16 B/P (MAP) 143/72 (95) 143/72 Pulse Ox 97 95 O2 Delivery Room Air Room Air FiO2 21 06/04/18 06/05/18 06/05/18 06/05/18 22:15 03:40 08:23 08:50 Temp 98.1 98.0 98.7 98.1 98.0 98.7 Pulse 77 65 68 68 Resp 18 B/P (MAP) 158/77 (104) 136/82 (100) 170/77 (108) 170/77 Pulse Ox 96 96 96 O2 Delivery Room Air Room Air Room Air 06/05/18 06/05/18 06/05/18 09:14 10:28 11:32 Temp 98.7 98.7 Pulse 72 70 Resp 18 B/P (MAP) 134/77 (96) Pulse Ox 97 73 O2 Delivery Room Air Room Air Room Air FiO2 21 Intake and Output 06/04/18 06/04/18 06/05/18 15:00 23:00 07:00 Intake Total 240 ml Output Total 1350 ml 650 ml Balance -1350 ml -410 ml Course Sepsis Screening Results: Posi: NEGATIVE Sepsis Qualifier/Stage: NO DEFINITE RISK Vitals & review Data Vital Sign - Last 24 Hours 06/03/18 06/03/18 06/03/18 06/03/18 11:25 11:25 13:57 14:01 Temp 98.2 98.2 Pulse 96 77 86 Resp 19 18 18 B/P (MAP) 175/86 (115) 165/87 (113) 149/75 (99) Pulse Ox 98 95 95 O2 Delivery Room Air Room Air Nasal Canula Nasal Canula O2 Flow Rate 3 2 06/03/18 06/03/18 06/03/18 06/03/18 17:30 17:30 17:45 18:00 Temp 98.9 97.9 97.0 98.9 97.9 97.0 Pulse 57 60 59 Resp 18 18 18 B/P (MAP) 109/53 (71) 101/55 (70) 101/57 (72) Pulse Ox 99 99 96 O2 Delivery Non-Rebreather Non-Rebreather Nasal Canula O2 Flow Rate 15 15 10 3.5 06/03/18 18:15 Temp 97.3 97.3 Pulse 57 Resp 18 B/P (MAP) 94/53 (67) Pulse Ox 97 O2 Delivery Nasal Canula O2 Flow Rate 3.5 Current Medications Medications (Trade) Dose Ordered Sig/Ping PRN Reason Start Time Stop Time Status Last Admin Acetaminophen (Tylenol) 1,000 mg Q6H 06/03/18 06:30 07/03/18 06:29 Albuterol/ Ipratropium (Duoneb 0.5 Mg-3 Mg/3 ml Soln) 3 ml PRN PRN WHEEZING 06/03/18 15:30 07/03/18 15:29 Carvedilol (Coreg) 3.125 mg BID 06/03/18 21:00 07/03/18 20:59 UNV Cholecalciferol (Vitamin D) 5,000 unit DAILY 06/04/18 09:00 07/04/18 08:59 UNV Cyclobenzaprine HCl (Flexeril) 10 mg HS 06/03/18 21:00 07/03/18 20:59 UNV Diazepam (Valium) 5 mg Q6HR PRN MUSCLE SPASM 06/03/18 18:00 07/03/18 17:59 UNV Docusate Sodium (Colace) 100 mg DAILY 06/04/18 09:00 07/04/18 08:59 UNV Famotidine (Pepcid) 20 mg DAILY 06/04/18 09:00 07/04/18 08:59 UNV Fentanyl Citrate (Sublimaze) 25 mcg Q5MIN PRN PAIN 06/03/18 06:30 06/04/18 06:29 Gabapentin (Neurontin) 400 mg Q24HRS 06/04/18 06:30 06/04/18 06:31 Hydromorphone HCl (Dilaudid) 0.2 mg Q5MIN PRN PAIN MILD 06/03/18 06:30 06/04/18 06:29 Hydroxyzine HCl (Atarax) 25 mg DAILY24 PRN ITCHING 06/03/18 18:00 07/03/18 17:59 UNV Meperidine HCl (Demerol) 50 mg Q4HR PRN PAIN 8-10 06/03/18 18:00 07/03/18 17:59 UNV Montelukast Sodium (Singulair) 10 mg DAILY 06/04/18 09:00 07/04/18 08:59 UNV Bnbih-5-Tndm Ethyl Esters (Lovaza) 1 gm DAILY24 06/03/18 18:00 07/03/18 17:59 UNV Ondansetron HCl (Zofran) 4 mg PRN PRN nausea 06/03/18 06:30 06/08/18 06:29 Rivaroxaban (Xarelto) 10 mg DAILY 06/04/18 09:00 07/04/18 08:59 UNV Sumatriptan Succinate (Imitrex) 50 mg DAILY24 PRN MIGRAINES 06/03/18 18:00 07/03/18 17:59 UNV Throat Lozenges (Cepacol Sore Throat Lozenge) 1 each PRN PRN SORE THROAT 06/03/18 18:00 07/03/18 17:59 UNV Topiramate (Topamax) 25 mg DAILY 06/04/18 09:00 07/04/18 08:59 UNV Tramadol HCl (Ultram) 50 mg Q4HR 06/03/18 20:00 07/03/18 19:59 UNV Tramadol HCl (Ultram) 100 mg Q4HR PRN SEVERE PAIN 06/03/18 18:00 07/03/18 17:59 UNV Vancomycin HCl 1.5 gm/Sodium Chloride 250 ml Q12H 06/03/18 18:00 06/04/18 18:01 UNV CLIFFORD CORNEJO MD Jun 05, 2018 15:08
[2018-06-05] MEDS ORDERED: NS 100ML 100 ML IV ONE (15:51)
[2018-06-05] MEDS: OFIRMEV IV SCH (16:01)
[2018-06-05 16:19] VITALS: BP 167/79
--- NOTE | 2018-06-05 18:55 | NUR ---
Report Received bedside report from Kirill Torres RN
[2018-06-05] MEDS: FLEXERIL PO SCH (21:30)
[2018-06-05] MEDS: ULTRAM PO PRN (21:31)
[2018-06-05] MEDS: LOVAZA PO SCH (21:32)
[2018-06-05 22:03] VITALS: BP 173/33
[2018-06-06] MEDS: OFIRMEV IV SCH ×2 (00:05→08:04)
[2018-06-06] MEDS: ULTRAM PO SCH ×4 (00:05→12:00)
[2018-06-06 00:47] VITALS: BP 171/82
[2018-06-06 04:54] LABS: HEMOGLOBIN 11.2 g/dL (12.0-15.0); MEAN CELL HGB 29.9 pg (26-34); MEAN CELL HGB CONCENTRATION 31.6 g/dL (33-37); MEAN CORP VOLUME 94.7 fL (78-100); MEAN PLATELET VOLUME 11.4 fL (7.8-11.0); RED CELL DISTRIBUTION WIDTH 14.1 % (11.5-14.5); WHITE BLOOD CELL 9.2 10^3/uL (4.5-11.0)
[2018-06-06 05:36] VITALS: BP 159/80
--- NOTE | 2018-06-06 06:28 | NUR ---
Report Report given to dayshift
[2018-06-06] MEDS: LACTATED RINGERS 1,000 ML IV SCH (07:08)
[2018-06-06 07:18] VITALS: BP 160/79
--- NOTE | 2018-06-06 07:23 | NUR ---
Report Report received from Flor VALERIO at change of shift. Alert and oriented, able to make her needs known. Has been managing her toileting needs safely, with a walker and no assist.
[2018-06-06] MEDS: PEPCID PO SCH (08:05)
[2018-06-06] MEDS: XARELTO PO SCH (08:05)
[2018-06-06] MEDS: COLACE PO SCH (08:05)
[2018-06-06] MEDS: VITAMIN D PO SCH (08:05)
[2018-06-06] MEDS: SINGULAIR PO SCH (08:05)
[2018-06-06] MEDS: TOPAMAX PO SCH (08:05)
[2018-06-06] MEDS: COREG PO SCH (08:05)
--- NOTE | 2018-06-06 10:53 | PRM.PN ---
Subjective Subjective Date: Jun 06, 2018 Time: 10:52 Subjective Pain better today Independent with PT HGB 11.2 Will dc Appt 4 days Patient History: Autoimmune disorder V19 CHILD Chronic obstructive pulmonary disease 32 MOTHER, , Age:79 33 FATHER, , Age:76 G8 SISTER G8 SISTER Diabetes mellitus V19 CHILD FH: Crohn's disease G8 SISTER No known health problems G8 SISTER G8 SISTER G8 SISTER V19 CHILD V19 CHILD No Family History of: Alzheimer's disease Asthma Cerebrovascular disorder Congestive heart failure Diabetes insipidus Hypertension Parkinson's disease VTE VTE Risk Total Score: 4 VTE Risk Score VTE Risk: Score 0-1 = Low Risk (Aggressive mobilization; early ambulation; no VTE prophylaxis required) Score 2: Moderate Risk (Intermittent/Pneumatic Compression Device OR Lovenox/Heparin/Coumadin) Score 3-4: High Risk (Intermittent/Pneumatic Compression Device AND Lovenox/Heparin/Coumadin) Score > or =5: Highest Risk (Intermittent/Pneumatic Compression Device AND Lovenox/Heparin/Coumadin) Review of Systems Allergies: Coded Allergies: adhesive (Verified Allergy, Severe, DISOLVES MY SKIN, TURNS IT RAW, ) shellfish derived (Verified Allergy, Severe, SWELLING, RASH, 05/29/18) avocado (Verified Allergy, Unknown, MOUTH ITCHES, 05/29/18) codeine (Verified Allergy, Unknown, RASH, ITCHING, 05/29/18) latex (Verified Allergy, Unknown, DISOLVES MY SKIN, RAW, 05/29/18) morphine (Verified Allergy, Unknown, RASH, ITCHING, 05/29/18) Scheduled Ascorbic Acid (Vitamin C), 1,000 MG PO DAILY24, (Reported) Calcium Carb & Cit/Vitamin D3 (Calcium + D3 Er Tablet), 1 EACH PO DAILY24, ( Reported) Carvedilol 3.125MG (Coreg 3.125MG), 1 TAB PO BID, (Reported) Cholecalciferol (Vitamin D3) (Vitamin D3), 1 TAB PO DAILY, (Reported) Cyclobenzaprine Hcl (Flexeril), 1 TAB PO HS, (Reported) Fexofenadine Hcl (Keri Allergy), 1 TAB PO DAILY, (Reported) Lactobacillus Combo No.11 (Probiotic), 2 EACH PO HS, (Reported) Levothyroxine Sodium (Levothyroxine Sodium), 1 TAB PO DAILY, (Reported) Magnesium Oxide (Magnesium), 1 CAP PO DAILY, (Reported) Montelukast Sodium (Singulair), 1 TAB PO DAILY, (Reported) [place]-3 Acid Ethyl Esters (Lovaza), 1 CAP PO DAILY24, (Reported) Omeprazole Magnesium (Prilosec Otc), 1 TAB PO DAILY, (Reported) Topiramate (Topiramate), 1 TAB PO DAILY, (Reported) Vitamin E Acid Succinate (Vitamin E), 200 UNIT PO DAILY24, (Reported) [Guna-Flu], 1 VIAL PO DAILY24, (Reported) Scheduled PRN Hydroxyzine Hcl (Hydroxyzine Hcl), 1 TAB PO DAILY24 PRN for ITCHING, (Reported) Ibuprofen (Advil), 400 MG PO DAILY24 PRN for PAIN, (Reported) Sumatriptan Succinate (Imitrex), 50 MG PO DAILY24 PRN for MIGRAINES, (Reported) Objective Vitals and I/O Vital Sign - Last 24 Hours 06/05/18 06/05/18 06/05/18 06/05/18 11:32 16:19 19:21 21:30 Temp 98.7 98.7 98.7 98.7 Pulse 70 69 81 Resp 18 16 16 B/P (MAP) 134/77 (96) 167/79 (108) 173/73 Pulse Ox 73 98 97 O2 Delivery Room Air Room Air Room Air FiO2 21 06/05/18 06/05/18 06/06/18 06/06/18 22:03 23:31 00:47 05:36 Temp 98.2 98.2 98.2 98.2 98.2 98.2 Pulse 81 75 71 Resp 18 18 18 B/P (MAP) 173/33 (79) 171/82 (111) 159/80 (106) Pulse Ox 99 97 97 O2 Delivery Room Air Room Air Room Air Room Air 06/06/18 06/06/18 06/06/18 06/06/18 07:18 08:05 08:19 08:20 Temp 98.2 98.2 Pulse 78 78 93 Resp 18 B/P (MAP) 160/79 (106) 160/79 Pulse Ox 97 95 95 O2 Delivery Room Air Room Air FiO2 21 Intake and Output 06/05/18 06/05/1806/06/18 15:00 23:00 07:00 Intake Total 1200 ml 220 ml Output Total 900 ml 750 ml 500 ml Balance 300 ml -530 ml -500 ml Course Sepsis Screening Results: Posi: NEGATIVE Sepsis Qualifier/Stage: NO DEFINITE RISK Vitals & review Data Vital Sign - Last 24 Hours 06/03/18 06/03/18 06/03/18 06/03/18 11:25 11:25 13:57 14:01 Temp 98.2 98.2 Pulse 96 77 86 Resp 19 18 18 B/P (MAP) 175/86 (115) 165/87 (113) 149/75 (99) Pulse Ox 98 95 95 O2 Delivery Room Air Room Air Nasal Canula Nasal Canula O2 Flow Rate 3 2 06/03/18 06/03/18 06/03/18 06/03/18 17:30 17:30 17:45 18:00 Temp 98.9 97.9 97.0 98.9 97.9 97.0 Pulse 57 60 59 Resp 18 18 18 B/P (MAP) 109/53 (71) 101/55 (70) 101/57 (72) Pulse Ox 99 99 96 O2 Delivery Non-Rebreather Non-Rebreather Nasal Canula O2 Flow Rate 15 15 10 3.5 06/03/18 18:15 Temp 97.3 97.3 Pulse 57 Resp 18 B/P (MAP) 94/53 (67) Pulse Ox 97 O2 Delivery Nasal Canula O2 Flow Rate 3.5 Current Medications Medications (Trade) Dose Ordered Sig/Ping PRN Reason Start Time Stop Time Status Last Admin Acetaminophen (Tylenol) 1,000 mg Q6H 06/03/18 06:30 07/03/18 06:29 Albuterol/ Ipratropium (Duoneb 0.5 Mg-3 Mg/3 ml Soln) 3 ml PRN PRN WHEEZING 06/03/18 15:30 07/03/18 15:29 Carvedilol (Coreg) 3.125 mg BID 06/03/18 21:00 07/03/18 20:59 UNV Cholecalciferol (Vitamin D) 5,000 unit DAILY 06/04/18 09:00 07/04/18 08:59 UNV Cyclobenzaprine HCl (Flexeril) 10 mg HS 06/03/18 21:00 07/03/18 20:59 UNV Diazepam (Valium) 5 mg Q6HR PRN MUSCLE SPASM 06/03/18 18:00 07/03/18 17:59 UNV Docusate Sodium (Colace) 100 mg DAILY 06/04/18 09:00 07/04/18 08:59 UNV Famotidine (Pepcid) 20 mg DAILY 06/04/18 09:00 07/04/18 08:59 UNV Fentanyl Citrate (Sublimaze) 25 mcg Q5MIN PRN PAIN 06/03/18 06:30 06/04/18 06:29 Gabapentin (Neurontin) 400 mg Q24HRS 06/04/18 06:30 06/04/18 06:31 Hydromorphone HCl (Dilaudid) 0.2 mg Q5MIN PRN PAIN MILD 06/03/18 06:30 06/04/18 06:29 Hydroxyzine HCl (Atarax) 25 mg DAILY24 PRN ITCHING 06/03/18 18:00 07/03/18 17:59 UNV Meperidine HCl (Demerol) 50 mg Q4HR PRN PAIN 8-10 06/03/18 18:00 07/03/18 17:59 UNV Montelukast Sodium (Singulair) 10 mg DAILY 06/04/18 09:00 07/04/18 08:59 UNV Mzcwf-4-Opip Ethyl Esters (Lovaza) 1 gm DAILY24 06/03/18 18:00 07/03/18 17:59 UNV Ondansetron HCl (Zofran) 4 mg PRN PRN nausea 06/03/18 06:30 06/08/18 06:29 Rivaroxaban (Xarelto) 10 mg DAILY 06/04/18 09:00 07/04/18 08:59 UNV Sumatriptan Succinate (Imitrex) 50 mg DAILY24 PRN MIGRAINES 06/03/18 18:00 07/03/18 17:59 UNV Throat Lozenges (Cepacol Sore Throat Lozenge) 1 each PRN PRN SORE THROAT 06/03/18 18:00 07/03/18 17:59 UNV Topiramate (Topamax) 25 mg DAILY 06/04/18 09:00 07/04/18 08:59 UNV Tramadol HCl (Ultram) 50 mg Q4HR 06/03/18 20:00 07/03/18 19:59 UNV Tramadol HCl (Ultram) 100 mg Q4HR PRN SEVERE PAIN 06/03/18 18:00 07/03/18 17:59 UNV Vancomycin HCl 1.5 gm/Sodium Chloride 250 ml Q12H 06/03/18 18:00 06/04/18 18:01 UNV CLIFFORD CORNEJO MD Jun 06, 2018 10:53
[2018-06-06 13:46] VITALS: BP 160/79
--- NOTE | 2018-06-06 13:51 | NUR ---
PT D/C HOME. INSTRUCTIONS GIVEN ON CARE OF INCISION SITE AT HOME. EDUCATION GIVEN ON SIGNS AND SYMPTOMS OF INFECTION. PT VERBALIZED UNDERSTANDING AND DENIES FURTHER QUESTIONS AT THIS TIME .
--- NOTE | 2018-06-06 15:45 | DSH ---
DATE OF DISCHARGE: 06/06/2018 ADMITTING DIAGNOSIS: Osteoarthritis of the right knee. OTHER DIAGNOSES: Include hypothyroidism, gastroesophageal reflux disease. DISCHARGE DIAGNOSES: Osteoarthritis of the right knee and postoperative anemia secondary to surgery expected. OPERATIVE PROCEDURE DATE: 06/03/2018. PROCEDURE PERFORMED: Right total knee arthroplasty. CONSULTATIONS: None. COMPLICATIONS: None. SUMMARY OF ADMISSION: The patient is a 62-year-old female with disabling pain about the right knee secondary to osteoarthritis. She failed conservative treatment including therapy, bracing, cortisone injections, anti-inflammatories. She had [id number] and tricompartmental osteoarthritis about the right knee. She was taken to the operating room for right total knee arthroplasty for pain relief on 06/03/2018. The patient tolerated the procedure well. Postoperatively, she was awake and alert and had normal vital signs and normal neurovascular exam. The patient has had daily physical therapy as well as occupational therapy for gait training as well as transfers and range of motion as well as ADLs. The patient's pain has been satisfactorily controlled with Tylenol as well as tramadol. The patient on discharge can walk at least 200 feet with a walker, weightbearing as tolerated. She has stable vital signs. Her hemoglobin dropped to a low of 10.6 on 06/05/2018; however, on the day of discharge, it was 11.2 with a hematocrit of 35.4. Her vital signs have remained stable throughout the postoperative course. The patient will be discharged today on 06/06/2018. She will be instructed to take aspirin 81 mg twice a day for DVT prophylaxis. The patient will be instructed to leave her Prevena dressing intact. She will use her walker and weightbear as tolerated. They have outpatient physical therapy aligned for the patient. She will be seen back in my office in 4 days. Umang Chirinos MD DR: CARI/timothy JOB# [id number]
== END 2018-06-06 18:20 | disposition home or self-care (01) | DRG 470 ==
LOC: MS 00:10 → EDPENDDISTM 06-06 13:49
PROVIDERS: ADMIT Orthopaedic Surgery; ATTEND Orthopaedic Surgery
PROC: 0SRC0J9 Replacement of Right Knee Joint with Synthetic Substitute, Cemented, Open Approach (ICD-10-PCS; principal; 2018-06-03 13:22)
DX: M17.11 Unilateral primary osteoarthritis, right knee (principal); G43.909 Migraine, unspecified, not intractable, without status migrainosus; D64.9 Anemia, unspecified; E03.9 Hypothyroidism, unspecified; K21.9 Gastro-esophageal reflux disease without esophagitis; Z80.1 Family history of malignant neoplasm of trachea, bronchus and lung; Z83.3 Family history of diabetes mellitus; Z90.710 Acquired absence of both cervix and uterus; Z82.5 Family history of asthma and other chronic lower respiratory diseases; Z84.89 Family history of other specified conditions; Z91.040 Latex allergy status; Z88.5 Allergy status to narcotic agent; Z91.013 Allergy to seafood; Z91.048 Other nonmedicinal substance allergy status
CPT/HCPCS: 27447; 36415; 64447; 64450; 64999; 73560; 80053; 81000; 82948; 85027; 87070; 93005; 97161; 97165; A4217; A4338; J0131; J1100; J1885; J2250; J2405; J2710; J2795; J3010; J3490; J7050; J7120; Q0163; 97110-GP; 97116-GP; 97530-GP; 97535-GO; 97760-GP; C1776; C9290; G8978-CK; G8979-CI; G8987; G8988; J3370

== ENCOUNTER 2018-08-30 06:29 | Observation (INO) | payer SELFPAY ==
[~2018-08-30] VITALS: Ht 163.8 cm; Wt 88.0 kg
[2018-08-30 06:29] VITALS: BP 154/83
[2018-08-30] MEDS ORDERED: LACTATED RINGERS 1,000 ML IV SCH ×2 (06:30→09:00)
[2018-08-30] MEDS ORDERED: LIDOCAINE 2% VIAL ONE (06:35)
[2018-08-30] MEDS ORDERED: VERSED ONE (06:35)
[2018-08-30] MEDS ORDERED: SUBLIMAZE ONE (06:36)
[2018-08-30] MEDS ORDERED: DIPRIVAN IV ONE (06:36)
[2018-08-30] MEDS ORDERED: DECADRON ONE (06:59)
[2018-08-30] MEDS ORDERED: TORADOL ONE (07:00)
[2018-08-30 08:20] VITALS: BP 118/75
[2018-08-30] MEDS ORDERED: ZOFRAN IV PRN (08:30)
[2018-08-30] MEDS ORDERED: DILAUDID IV PRN ×2 (08:30→09:00)
[2018-08-30] MEDS ORDERED: BENADRYL IV PRN (08:30)
[2018-08-30] MEDS ORDERED: SUBLIMAZE IV PRN (08:30)
[2018-08-30] MEDS ORDERED: PHENERGAN IV PRN (08:30)
--- NOTE | 2018-08-30 08:33 | OPH ---
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 OPERATIVE PROCEDURE: Manipulation under anesthesia, right knee. SURGEON: Dr. Chirinos. ANESTHESIA: General. BLOOD LOSS: None. TOURNIQUET TIME: None. DESCRIPTION OF INDICATIONS: The patient is a 63-year-old female who is approximately 2-1/2 months out from right total knee arthroplasty. Despite aggressive physical therapy, the patient's range of motion is -10 degrees of extension and approximately 80 degrees of flexion. The patient was taken to the operating room today for manipulation under anesthesia. DESCRIPTION OF PROCEDURE: The patient was placed on the gurney in the supine position. A general anesthetic was induced by the Anesthesia Department. The patient's knee was manipulated into full extension and approximately 120 degrees of flexion. The patient continued to have good medial and lateral stability. The patient was then sent to recovery in stable condition. Umang Chirinos MD DR: CARI/timothy JOB# [id number]
[2018-08-30 08:35] VITALS: BP 138/74
[2018-08-30 08:50] VITALS: BP 139/94
[2018-08-30 09:00] VITALS: BP 138/72
[2018-08-30] MEDS ORDERED: ULTRAM PO PRN ×2 (09:00)
[2018-08-30] MEDS ORDERED: PEPCID PO SCH (09:00)
[2018-08-30] MEDS ORDERED: COLACE PO SCH (09:00)
--- NOTE | 2018-08-30 11:42 | NUR ---
DISCHARGE PLAN SPOKE TO PT AND SPOUSE ABOUT DISCHARGE PLAN AND NEEDS. PT LIVES AT HOME WITH SPOUSE. PCP IS DR. BYRAN, DR. CORNEJO DID SURGERY. CPM TO BE DELIVERED BY [facility] THIS AFTERNOON. [facility] NUMBER GIVEN TO SPOUSE WALDEMAR AND CM CALLED [facility] TO GIVE THEM SPOUSES NUMBER. PT HAS WALKER IN HOME ALREADY. PT STATES THEY ARE ABLE TO AFFORD MEDICATIONS WITHOUT ASSISTANCE. DISCHARGE GOAL IS TO DISCHARGE HOME WITH SPOUSE, [facility] TO DELIVER CPM TO HOME. NO FURTHER NEEDS AT THIS TIME.
--- NOTE | 2018-08-30 11:59 | NUR ---
DISCHARGE PLAN UPDATE PT IS ALREADY AN ESTABLISHED PATIENT FOR PHYSICAL THERAPY AT [facility] IN [place]. SHE HAS AN APPT WITH THEM Sunday.
--- NOTE | 2018-08-30 15:03 | PRM.PN ---
Subjective Subjective Date: Aug 30, 2018 Time: 15:00 Subjective Awake and alert Pain ok Tolerating CPM well Ambulatory without walker Will dc Appt 2 weeks Patient History: Autoimmune disorder V19 CHILD Chronic obstructive pulmonary disease 32 MOTHER, , Age:79 33 FATHER, , Age:76 G8 SISTER G8 SISTER Diabetes mellitus V19 CHILD FH: Crohn's disease G8 SISTER No known health problems G8 SISTER G8 SISTER G8 SISTER V19 CHILD V19 CHILD No Family History of: Alzheimer's disease Asthma Cerebrovascular disorder Congestive heart failure Diabetes insipidus Hypertension Parkinson's disease VTE VTE Risk Total Score: 3 VTE Risk Score VTE Risk: Score 0-1 = Low Risk (Aggressive mobilization; early ambulation; no VTE prophylaxis required) Score 2: Moderate Risk (Intermittent/Pneumatic Compression Device OR Lovenox/Heparin/Coumadin) Score 3-4: High Risk (Intermittent/Pneumatic Compression Device AND Lovenox/Heparin/Coumadin) Score > or =5: Highest Risk (Intermittent/Pneumatic Compression Device AND Lovenox/Heparin/Coumadin) Review of Systems Allergies: Coded Allergies: adhesive (Verified Allergy, Severe, DISOLVES MY SKIN, TURNS IT RAW, ) shellfish derived (Verified Allergy, Severe, SWELLING, RASH, 05/29/18) avocado (Verified Allergy, Unknown, MOUTH ITCHES, 05/29/18) codeine (Verified Allergy, Unknown, RASH, ITCHING, 05/29/18) latex (Verified Allergy, Unknown, DISOLVES MY SKIN, RAW, 05/29/18) morphine (Verified Allergy, Unknown, RASH, ITCHING, 05/29/18) Scheduled Ascorbic Acid (Vitamin C), 1,000 MG PO DAILY24, (Reported) Calcium Carb & Cit/Vitamin D3 (Calcium + D3 Er Tablet), 1 EACH PO DAILY24, ( Reported) Carvedilol 3.125MG (Coreg 3.125MG), 1 TAB PO BID, (Reported) Cholecalciferol (Vitamin D3) (Vitamin D3), 1 TAB PO DAILY, (Reported) Cyclobenzaprine Hcl (Flexeril), 1 TAB PO HS, (Reported) Fexofenadine Hcl (Keri Allergy), 1 TAB PO DAILY, (Reported) Lactobacillus Combo No.11 (Probiotic), 2 EACH PO HS, (Reported) Levothyroxine Sodium (Levothyroxine Sodium), 1 TAB PO DAILY, (Reported) Magnesium Oxide (Magnesium), 1 CAP PO DAILY, (Reported) Montelukast Sodium (Singulair), 1 TAB PO DAILY, (Reported) [place]-3 Acid Ethyl Esters (Lovaza), 1 CAP PO DAILY24, (Reported) Omeprazole Magnesium (Prilosec Otc), 1 TAB PO DAILY, (Reported) Topiramate (Topiramate), 1 TAB PO DAILY, (Reported) Vitamin E Acid Succinate (Vitamin E), 200 UNIT PO DAILY24, (Reported) [Guna-Flu], 1 VIAL PO DAILY24, (Reported) Scheduled PRN Hydroxyzine Hcl (Hydroxyzine Hcl), 1 TAB PO DAILY24 PRN for ITCHING, (Reported) Ibuprofen (Advil), 400 MG PO DAILY24 PRN for PAIN, (Reported) Sumatriptan Succinate (Imitrex), 50 MG PO DAILY24 PRN for MIGRAINES, (Reported) Objective Vitals and I/O Vital Sign - Last 24 Hours 08/30/18 08/30/18 08/30/18 08/30/18 06:29 06:29 08:20 08:25 Temp 98.2 98.1 98.2 98.1 Pulse 84 83 Resp 19 18 B/P (MAP) 154/83 (106) 118/75 (89) Pulse Ox 98 99 O2 Delivery Room Air Room Air Non-Rebreather O2 Flow Rate 10 10 08/30/18 08/30/18 08/30/18 08/30/18 08:35 08:50 09:00 10:14 Temp 98.3 97.7 97.8 98.3 97.7 97.8 Pulse 80 68 72 Resp 18 18 18 18 B/P (MAP) 138/74 (95) 139/94 (109) 138/72 (94) Pulse Ox 95 97 99 99 O2 Delivery Room Air Room Air Room Air 08/30/18 08/30/18 10:17 10:48 Pulse 78 Resp 16 Pulse Ox 98 O2 Delivery Room Air FiO2 21 All Results(Lab/Rad) Current Medications Medications (Trade) Dose Ordered Sig/Ping Route PRN Reason Start Time Stop Time Status Last Admin Dose Admin Lidocaine HCl (Lidocaine 2% Vial) 500 mg STK-MED ONCE .ROUTE 08/30/18 06:35 08/30/18 06:38 DC Midazolam HCl (Versed) 1 mg STK-MED ONCE .ROUTE 08/30/18 06:35 08/30/18 06:39 DC Fentanyl Citrate (Sublimaze) 100 mcg STK-MED ONCE .ROUTE 08/30/18 06:36 08/30/18 06:40 DC Propofol (Diprivan) 200 mg STK-MED ONCE IV 08/30/18 06:36 08/30/18 06:40 DC Dexamethasone Sodium Phosphate (Decadron) 20 mg STK-MED ONCE .ROUTE 08/30/18 06:59 08/30/18 07:04 DC Ketorolac Tromethamine (Toradol) 30 mg STK-MED ONCE .ROUTE 08/30/18 07:00 08/30/18 07:04 DC Hydromorphone HCl (Dilaudid) 0.2 mg Q5MIN PRN IV PAIN MILD 08/30/18 08:30 08/30/18 11:45 DC Fentanyl Citrate (Sublimaze) 25 mcg Q5MIN PRN IV PAIN 08/30/18 08:30 08/30/18 11:45 DC Ondansetron HCl (Zofran) 4 mg PRN PRN IV nv 08/30/18 08:30 08/30/18 11:45 DC Promethazine HCl (Phenergan) 6.25 mg PRN PRN IV NAUSEA / VOMITING 08/30/18 08:30 08/30/18 11:45 DC Diphenhydramine HCl (Benadryl) 25 mg Q5MIN PRN IV NAUSEA / VOMITING 08/30/18 08:30 08/30/18 11:45 DC Tramadol HCl (Ultram) 50 mg Q6H PRN PO MILD PAIN 08/30/18 09:00 09/29/18 08:59 Tramadol HCl (Ultram) 100 mg Q6H PRN PO SEVERE PAIN 08/30/18 09:00 09/29/18 08:59 08/30/18 14:15 Docusate Sodium (Colace) 100 mg DAILY PO 08/30/18 09:00 09/29/18 08:59 08/30/18 10:03 Famotidine (Pepcid) 20 mg DAILY PO 08/30/18 09:00 3/10/19 08:59 08/30/18 10:03 Hydromorphone HCl (Dilaudid) 2 mg Q4H PRN IV PAIN 8-10 08/30/18 09:00 09/29/18 08:59 Course Sepsis Screening Results: Posi: NEGATIVE Sepsis Qualifier/Stage: NO DEFINITE RISK Vitals & review Data Vital Sign - Last 24 Hours 08/30/18 08/30/18 08/30/18 08/30/18 06:29 06:29 08:20 08:25 Temp 98.2 98.1 98.2 98.1 Pulse 84 83 Resp 19 18 B/P (MAP) 154/83 (106) 118/75 (89) Pulse Ox 98 99 O2 Delivery Room Air Room Air Non-Rebreather O2 Flow Rate 10 10 08/30/18 08/30/18 08/30/18 08/30/18 08:35 08:50 09:00 10:14 Temp 98.3 97.7 97.8 98.3 97.7 97.8 Pulse 80 68 72 Resp 18 18 18 18 B/P (MAP) 138/74 (95) 139/94 (109) 138/72 (94) Pulse Ox 95 97 99 99 O2 Delivery Room Air Room Air Room Air 08/30/18 08/30/18 10:17 10:48 Pulse 78 Resp 16 Pulse Ox 98 O2 Delivery Room Air FiO2 21 Current Medications Medications (Trade) Dose Ordered Sig/Ping PRN Reason Start Time Stop Time Status Last Admin Docusate Sodium (Colace) 100 mg DAILY 08/30/18 09:00 09/29/18 08:59 08/30/18 10:03 Famotidine (Pepcid) 20 mg DAILY 08/30/18 09:00 09/29/18 08:59 08/30/18 10:03 Hydromorphone HCl (Dilaudid) 2 mg Q4H PRN PAIN 8-10 08/30/18 09:00 09/29/18 08:59 Tramadol HCl (Ultram) 50 mg Q6H PRN MILD PAIN 08/30/18 09:00 09/29/18 08:59 Tramadol HCl (Ultram) 100 mg Q6H PRN SEVERE PAIN 08/30/18 09:00 09/29/18 08:59 08/30/18 14:15 LEVEL 1 SEPSIS INFECTION CRITE: ABX Therapy, Recent Invasive Procedure LEVEL 2-SIRS (LIST ALL THAT AP: None/Not assessed Cardiovascular Evidence: Not Assessed or None Hematologic Evidence: None/Not assessed Hepatic Evidence: None/Not assessed Metabolic Evidence: None/Not assessed Neurological Evidence: None/Not assessed Respiratory Evidence: None/Not assessed Renal Evidence: None/Not assessed O2 Sat by Pulse Oximetry: 98 Oxygen Flow Rate: 10 CLIFFORD CORNEJO MD Aug 30, 2018 15:03
[2018-08-30 16:38] VITALS: BP 138/72
--- NOTE | 2018-08-30 16:40 | NUR ---
DISCHARGED PT DISCHARGED. DISCHARGE INSTRUCTIONS GIVEN TO PT. NO QUESTIONS OR CONCERNS AT THIS TIME. TRANSPORTED PT OFF OF UNIT VIA WHEELCHAIR. NO S.S OF DISTRESS NOTED AT TIME OF DISCHARGE
== END 2018-08-30 17:11 | disposition home or self-care (01) ==
LOC: SDC 06:29 → MS 08:30 → EDPENDDISTM 16:40
PROVIDERS: ADMIT Orthopaedic Surgery; ATTEND Orthopaedic Surgery
DX: M24.661 Ankylosis, right knee (principal); Z88.8 Allergy status to other drugs, medicaments and biological substances; Z91.013 Allergy to seafood; Z79.899 Other long term (current) drug therapy
CPT/HCPCS: 27570; 97161; G0378 ×9; J1100; J1885; J2001; J2250; J3010; J3490; J7120